=== PATIENT | female | born 1950 | race Hispanic/Latino ===

== ENCOUNTER → 2021-02-15 | Outpatient (CLI) | payer OTHER | END | disposition home or self-care (01) | LOC: SHCH 10:28 | PROVIDERS: ATTEND Internal Medicine Cardiovascular Disease | DX: I08.2 Rheumatic disorders of both aortic and tricuspid valves (principal); I11.9 Hypertensive heart disease without heart failure | CPT/HCPCS: 93306; 93356 ==

== ENCOUNTER → 2024-10-09 | Outpatient (CLI) | payer OTHER ==
[2024-10-09] MEDS: REGADENOSON 0.4 MG/5 ML PF SYG IVP ONE (12:32)
--- NOTE | 2024-10-09 17:25 | HMCSR ---
APPROVED REPORT Height: 5 ft 3in Weight: 152 lbs TEST INDICATIONS CAD The imaging protocol used to acquire images was Rest Tc-99m/stress Tc-99m 1 day Consent: The procedure was explained and understood by the patient. Informerd consent was witnessed Carito SMITH RN First, low dose rest was performed then high dose stress. RESTING DATA: The resting ekg shows: NSR Rest SPECT myocardial perfusion imaging was performed in supine position minutes following the intra venous injection of 10 mCi of Tc-99 Sestamibi. Time of rest injection: 11:10: Date: 10/09/2024 PHARMACOLOGIC STRESS: Pharmacologic stress test was performed by injecting regadenoson 0.4 mg IV push followed by the intra venous injection of 29 mCi of Tc-99 Sestamibi. Time of stress injection: 12:46: Date: 10/09/2024 Heart Rate at time of stress injection: 63 bpm. Gated Stress SPECT was performed 60 minutes after stress injection. The images were gated to evaluate regional wall motion and calculate left ventricular ejection fracti on. STRESS DETAILS Reason for Termination: Infusion complete Stress Symptoms: Nausea, Flushing Max HR Achieved: 92 bpm % of APMHR Achieved: 74 Max Blood Pressure: 128/66 mmHg Stress ECG: NSR Study quality was good. Lung uptake was Normal. LEFT VENTRICLE Size: The left ventricular size is normal. Systolic Function:The left ventricular systolic function is normal. Wall Motion: No regional wall motion abnormalities noted. The left ventricular ejection fraction was calculated to be 79%.TID = 1.05. LV PERFUSION The rest and stress images show normal perfusion. IMPRESSION Normal pharmacologic nuclear stress test. Global LV Function: Normal Stress ECG Summary: Normal LV Perfusion Summary: Normal Conclusion Normal pharmacologic nuclear stress test. Global LV Function: Normal Stress ECG Summary: Normal LV Perfusion Summary: Normal No ischemia No infarct Low risk scan
== END | disposition home or self-care (01) ==
LOC: RAH 10:26
PROVIDERS: ATTEND Internal Medicine Cardiovascular Disease
DX: I25.119 Atherosclerotic heart disease of native coronary artery with unspecified angina pectoris (principal); R11.0 Nausea; R23.2 Flushing
CPT/HCPCS: 78452; 93017; J2785; A9500 ×2